=== PATIENT | female | born 2000 | race Caucasian/White ===

== ENCOUNTER 2018-07-05 07:13 | Inpatient (IN) | payer OTHER ==
[2018-07-05] MEDS ORDERED: OXYTOCIN 30 UNITS/LR 500 ML IV ×2 (08:00)
[2018-07-05] MEDS ORDERED: LIDOCAINE 1% (MPF) 30 ML INJ INJ (08:00)
[2018-07-05] MEDS ORDERED: CARBOPROST 250 MCG INJ IM (08:00)
[2018-07-05] MEDS ORDERED: MISOPROSTOL 200 MCG TAB PR (08:00)
[2018-07-05] MEDS ORDERED: METHYLERGONOVINE 0.2 MG INJ IM (08:00)
[2018-07-05] MEDS: LACTATED RINGER'S 1,000 ML IV ×2 (08:56→16:31)
[2018-07-05 09:03] LABS: ADD MAN DIFF? NO
[2018-07-05 09:06] LABS: BASOPHILS % 0.3 % (0.0-2.0); EOSINOPHILS # 0.1 10^3/ul (0.0-0.5); EOSINOPHILS % 1.3 % (0.0-7.0); HEMATOCRIT 33.7 % (37.0-47.0); HEMOGLOBIN 11.4 g/dl (12.0-16.0); LYMPHOCYTES # 2.2 10^3/ul (0.8-2.9); LYMPHOCYTES % 28.2 % (18.0-55.0); MEAN CORPUSCULAR HEMOGLOBIN 32.3 pg (29.0-33.0); MEAN CORPUSCULAR HGB CONC 33.8 g/dl (32.0-37.0); MEAN CORPUSCULAR VOLUME 95.5 fl (72.0-104.0); MEAN PLATELET VOLUME 10.4 fl (7.4-10.4); MONOCYTE # 0.6 10^3/ul (0.3-0.9); MONOCYTES % 7.4 % (0.0-13.0); NEUTROPHIL # 4.9 10^3/ul (1.6-7.5); PLATELET COUNT 209 10^3/UL (140-415); RED BLOOD COUNT 3.53 10^6/ul (4.20-5.40); RED CELL DISTRIBUTION WIDTH 12.6 % (11.5-14.5)
[2018-07-05 09:06] LABS: WHITE BLOOD COUNT 7.8 10^3/ul (4.8-10.8)
[2018-07-05 09:35] LABS: INR 0.86; PROTIME 11.8 Sec (11.9-14.9); PT RATIO 0.9
[2018-07-05 09:36] LABS: PARTIAL THROMBOPLASTIN TIME 26.6 Sec (23.0-35.0)
[2018-07-05 12:16] LABS: HEPATITIS B SURFACE ANTIGEN NEGATIVE (NEGATIVE)
[2018-07-05] MEDS: OXYTOCIN 30 UNITS/LR 500 ML IV ×2 (12:50→22:07)
[2018-07-05] MEDS ORDERED: FENTAnyl 2MCG/ML-ROPIV 0.2% 100 ML (19:06)
[2018-07-05] MEDS ORDERED: FENTAnyl 2MCG/ML-ROPIV 0.2% 100 ML BAG EPI (19:30)
[2018-07-05] MEDS ORDERED: NALOXONE (0.4 MG/ML) INJ IV (19:30)
[2018-07-05 20:02] LABS: RAPID PLASMA REAGIN NONREACTIVE (NR)
[2018-07-05] MEDS ORDERED: MINERAL OIL LIGHT 10 ML VIAL TOP (20:30)
[2018-07-05] MEDS: MINERAL OIL LIGHT 10 ML VIAL TOP (21:30)
[2018-07-06] MEDS ORDERED: OXYTOCIN 30 UNITS/LR 500 ML IV
[2018-07-06] MEDS ORDERED: ZOLPIDEM 5 MG TAB PO
[2018-07-06] MEDS ORDERED: OXYCODONE/ASPIRIN (4.88/325) TAB PO ×2
[2018-07-06] MEDS ORDERED: CARBOPROST 250 MCG INJ IM
[2018-07-06] MEDS ORDERED: METHYLERGONOVINE 0.2 MG INJ IM
[2018-07-06] MEDS ORDERED: MISOPROSTOL 200 MCG TAB PR
[2018-07-06] MEDS ORDERED: LACTATED RINGER'S 1,000 ML IV (03:45)
[2018-07-06 05:55] LABS: ADD MAN DIFF? NO
[2018-07-06 06:07] LABS: WHITE BLOOD COUNT 12.3 10^3/ul (4.8-10.8)
[2018-07-06 06:07] LABS: BASOPHILS % 0.2 % (0.0-2.0); EOSINOPHILS % 0.3 % (0.0-7.0); HEMATOCRIT 32.8 % (37.0-47.0); HEMOGLOBIN 11.3 g/dl (12.0-16.0); LYMPHOCYTES # 2.1 10^3/ul (0.8-2.9); LYMPHOCYTES % 17.1 % (18.0-55.0); MEAN CORPUSCULAR HEMOGLOBIN 32.7 pg (29.0-33.0); MEAN CORPUSCULAR HGB CONC 34.5 g/dl (32.0-37.0); MEAN CORPUSCULAR VOLUME 94.8 fl (72.0-104.0); MEAN PLATELET VOLUME 10.5 fl (7.4-10.4); MONOCYTE # 0.7 10^3/ul (0.3-0.9); MONOCYTES % 5.8 % (0.0-13.0); NEUTROPHIL # 9.3 10^3/ul (1.6-7.5); PLATELET COUNT 199 10^3/UL (140-415); RED BLOOD COUNT 3.46 10^6/ul (4.20-5.40); RED CELL DISTRIBUTION WIDTH 12.8 % (11.5-14.5)
[2018-07-06] MEDS: SENNA/DOCUSATE NA (8.6MG/50MG) TAB PO ×2 (09:01→20:54)
[2018-07-06] MEDS: BENZOCAINE 20% 56 ML SPRAY TOP (09:01)
[2018-07-06] MEDS: WITCH HAZEL/GLYCERIN PAD PR (09:01)
[2018-07-06] MEDS: IBUPROFEN 600 MG TAB PO (18:13)
[2018-07-07] MEDS: IBUPROFEN 600 MG TAB PO ×5 (00:33→12:29)
[2018-07-07] MEDS: SENNA/DOCUSATE NA (8.6MG/50MG) TAB PO (10:07)
[2018-07-07] MEDS: DIPHTH/TET/ACEL PERTUSS (ADULT) 0.5 ML VIAL IM* (12:30)
[2018-07-07] MEDS: BENZOCAINE 20% 56 ML SPRAY TOP (12:36)
[2018-07-07] MEDS: WITCH HAZEL/GLYCERIN PAD PR (12:36)
[2018-07-07] MEDS: LANOLIN HPA 1 PKT TOP (12:36)
== END 2018-07-07 16:00 | disposition home or self-care (01) | DRG 807 ==
LOC: OBT 07:13 → L-D 07:13 → PP1 07-06 17:31 → OBT 07:54 → L-D 07:50
PROVIDERS: Obstetrics & Gynecology
PROC: 10E0XZZ Delivery of Products of Conception, External Approach (ICD-10-PCS; principal; 2018-07-05)
PROC: 0W8NXZZ Division of Female Perineum, External Approach (ICD-10-PCS; 2018-07-05)
DX: O80 Encounter for full-term uncomplicated delivery (principal); Z37.0 Single live birth; Z3A.38 38 weeks gestation of pregnancy
CPT/HCPCS: 62322; 85025; 85610; 85730; 86592; 86850; 86900; 86901; 87340; 90715